=== PATIENT | male | born 1960 | race Caucasian/White ===

== ENCOUNTER → 2018-02-12 09:51 | Outpatient (CLI) | payer OTHER, SELFPAY ==
[2018-02-12 10:35] VITALS: PULSE 66
== END ==
PROVIDERS: Family Provider Family Medicine; PCP Family Medicine; Visit Provider Family Medicine
DX: R06.02 Shortness of breath (principal)
CPT/HCPCS: 94060; 94640

== ENCOUNTER → 2018-07-13 08:46 | Outpatient (CLI) | payer OTHER, SELFPAY ==
--- NOTE | 2018-07-13 09:02 | XR_ITS ---
XR finger RT min 2V CLINICAL INDICATION: Pain and numbness ITS.REASON: RT THUMB NUMBNESS ORDERING PHYSICIAN: Pete Rivera MD PATIENT AGE: 58 years Comparison: None FINDINGS: There is cortical irregularity involving the distal aspect of the first metacarpal with some osteophyte formation also at this region. The joint space is well-preserved. Minimal spurring is present at the proximal aspect of the proximal phalanx of the foam. There are mild osteoarthritic changes of the interphalangeal joint of the thumb. IMPRESSION: Cortical irregularity at the distal aspect of the first metacarpal which may be related to old fracture. Avascular necrosis with cortical collapse is also a consideration in the appropriate clinical setting. Mild osteoarthritis of the interphalangeal joint
== END ==
PROVIDERS: PCP Family Medicine; Visit Provider Family Medicine
DX: R20.0 Anesthesia of skin (principal)
CPT/HCPCS: 73140

== ENCOUNTER → 2019-09-04 12:54 | Outpatient (CLI) | payer OTHER, SELFPAY ==
[2019-09-04 13:00] LABS: Adenovirus F 40/41, stool Not Detected (NotDetected); Astrovirus Not Detected (NotDetected); Clostridium Difficile A/B, PCR Not Detected (NotDetected); Cryptosporidium Not Detected (NotDetected); Cyclospora Cayetanesis Not Detected (NotDetected); Entamoeba histolytica Not Detected (NotDetected); Enteroaggregative E coli Not Detected (NotDetected); Enteropathogenic E coli Not Detected (NotDetected); Enterotoxigenic E coli Not Detected (NotDetected); Giardia lamblia Not Detected (NotDetected); Norovirus Not Detected (NotDetected); Plesimonas Shigalloides, PCR Not Detected (NotDetected); Rotavirus A Not Detected (NotDetected); Salmonella, PCR Not Detected (NotDetected); Sapovirus Not Detected (NotDetected); Shiga-like toxin E coli Not Detected (NotDetected); Shigella Enterovasive E coli Not Detected (NotDetected); Vibrio Cholerae Not Detected (NotDetected); Vibrio, PCR Not Detected (NotDetected); Yersinia Entercolitica, PCR Not Detected (NotDetected)
[2019-09-04 15:47] LABS: Campylobacter Detected (NotDetected)
== END ==
PROVIDERS: Visit Provider Nurse Practitioner Family
DX: R19.7 Diarrhea, unspecified (principal); A04.5 Campylobacter enteritis
CPT/HCPCS: 87507

== ENCOUNTER → 2020-10-16 06:21 | Outpatient (CLI) | payer OTHER, SELFPAY ==
--- NOTE | 2020-10-16 06:51 | CT_ITS ---
PROCEDURE: CT LUNG SCREENING CLINICAL INDICATION: CURRENT SMOKER 30 pack year smoking history COMPARISON: No exams were available for comparison TECHNIQUE: The exam was performed on a GE Light Speed [address] scanner using 2.90 mGy CTDI. A low dose helical CT CHEST was performed on a multi-detector scanner. All CT scans at the facility use one or more dose reduction, viz: automated exposure control, ma/kV adjustment per patient size (including targeted exams where dose is matched to indication, i.e. head), or iterative reconstruction technique. The LDCT was performed in a facility that meets the criteria for the screening program. Data regarding this exam was submitted to ACR which is an approved registry. The order for this exam indicates that it came as a result of a lung cancer screening counseling shard decision-making visit that included all the elements required of such a visit including smoking cessation. The radiologist interpreting this exam meets the CMS criteria for the LDCT lung cancer screening program. The exam is reported using the Lung-RADS classification scale and reported to the ACR registry. NOTE: This study was performed for the specific purposes of lung cancer screening and is not an alternative to diagnostic chest CT. RADIATION DOSE: CTDI vol(CT dose Index-volume) = 2.90mG DLP (Dose Length Product) = 112.55 mGcm FINDINGS: There are few scattered small parenchymal and subpleural opacities. The largest areas approximately 1.4 x 0.9 cm in the right lung base posterior medially. These may be post inflammatory/infectious. Six-month follow-up suggested to confirm stability. Mild COPD changes. OTHER FINDINGS: Coronary artery calcifications are present. Aortic valve calcifications also noted. There is bilateral adrenal enlargement consistent with adenomatous involvement. IMPRESSION: Lung-RADS Category 3 Probably Benign Follow-up: [address] Chest without and with contrast. Dictated by: Virgilio Falcon MD 10/23/2020 13:12 Virgilio Falcon MD in [place] 10/23/2020 13:12
== END ==
PROVIDERS: PCP Family Medicine; Visit Provider Family Medicine
DX: Z87.891 Personal history of nicotine dependence (principal); Z12.2 Encounter for screening for malignant neoplasm of respiratory organs
CPT/HCPCS: 71271

== ENCOUNTER → 2020-11-28 11:42 | Outpatient (CLI) | payer OTHER, SELFPAY ==
--- NOTE | 2020-11-28 11:46 | XR_ITS ---
PROCEDURE: XR LUMBAR SPINE MIN 4V CLINICAL INDICATION: MID BACK PAIN COMPARISON: CR LS5 LUMB SPINE 5 VIEWS from 09/24/2012 FINDINGS: Normal alignment. No acute fracture or dislocation. Multilevel degenerative disc disease is present from L1-L4 and L5-S1 most progressed at L5-S1. Small anterior osteophytes are present at every lumbar level. Facet arthritic changes are noted at L5-S1. there are mild degenerative changes of the SI joints. Calcification noted involving the abdominal aorta with suggestion of mild aneurysmal dilatation of approximately [address] may confirm. Other findings:None. IMPRESSION: 1. Multilevel lumbar spondylosis which has shown some progression especially at L5-S1 compared to 09/24/2012. 2. Possible small abdominal aortic aneurysm. CT may confirm. Dictated by: Virgilio Falcon MD 11/28/2020 12:20 Virgilio Falcon MD in [facility] 11/28/2020 12:20
== END ==
PROVIDERS: PCP Family Medicine; Visit Provider Family Medicine
DX: M54.9 Dorsalgia, unspecified (principal)
CPT/HCPCS: 72110

== ENCOUNTER → 2021-03-08 09:48 | Outpatient (CLI) | payer OTHER, SELFPAY ==
--- NOTE | 2021-03-08 09:53 | MR_ITS ---
PROCEDURE INFORMATION: Exam: MR Lumbar Spine Without Contrast Exam date and time: 03/08/2021 9:53 AM Age: 61 years old Clinical indication: Low back pain; Additional info: Low back pain. Intermittent lbp. Lt leg pain, numbness and tingling. No injury or trauma. Prior x-ray 11-28-20 TECHNIQUE: Imaging protocol: Multiplanar magnetic resonance images of the lumbar spine without intravenous contrast. COMPARISON: CR XR LUMBAR SPINE MIN 4V 11/28/2020 11:50 AM FINDINGS: alignment is grossly normal. signal intensity within the bone marrow is normal. conus terminates at the mid aspect of L1. Soft tissues are unremarkable. Diffuse degenerative disc disease throughout the lumbar spine Large anterior osteophytes L5-S1 Severe neural foraminal narrowing L5-S1 No marrow edema Neural foraminal narrowing multiple levels most pronounced L3-L4, L4-L5 and L5-S1 Renal cyst bilaterally T11-T12: Central canal and neural foramina are widely patent. T12-L1: Central canal and neural foramina are widely patent. L1-L2: Mild narrowing of the central canal secondary to facet hypertrophic changes, ligamentum flavum hypertrophic changes, and a broad-based annular bulge. L2-L3: Broad-based annular disc bulge effaces the anterior aspect of the thecal sac mildly so. Disc lateralizes to the right and left.Central canal and neural foramina are widely patent.Moderate facet hypertrophic changes and ligamentum flavum hypertrophic changes. L3-L4: Broad-based annular disc bulge lateralizing to the right greater than left. Narrowing of the neural foramina right greater than left.Moderate facet hypertrophic changes and ligamentum flavum hypertrophic changes. L4-L5: Broad-based annular disc bulge effaces the anterior aspect of the thecal sac mildly so. Central canal and neural foramina are widely patent. L5-S1: Broad-based annular disc bulge with a broad-based central disc protrusion. Disc lateralizes to the right and left with narrowing of both neural foramina. IMPRESSION: Multilevel degenerative disc disease as described above.
== END ==
PROVIDERS: PCP Family Medicine; Visit Provider Neurological Surgery
DX: M54.50 Low back pain, unspecified (principal)
CPT/HCPCS: 72148; 76376

== ENCOUNTER → 2021-05-07 11:16 | Outpatient (CLI) | payer OTHER, SELFPAY ==
[2021-05-07 12:41] LABS: Blood Urea Nitrogen 16 mg/dl (9-20); Estimated Glomerular Filt Rate 85 ml/min (>60); GFR (African American) 103 ML/MIN (>60)
== END ==
PROVIDERS: Visit Provider Family Medicine
DX: R91.8 Other nonspecific abnormal finding of lung field (principal)
CPT/HCPCS: 36415; 82565; 84520

== ENCOUNTER → 2021-05-09 10:43 | Outpatient (CLI) | payer OTHER, SELFPAY ==
--- NOTE | 2021-05-09 10:50 | CT_ITS ---
PROCEDURE: CT CHEST WO/W CON CLINCAL INDICATION: F/U LUNG NODULES COMPARISON: CT CT LUNG SCREENING from 10/16/2020 TECHNIQUE: IV Contrast: 75ml Isovue 370 Axial images obtained with sagittal and coronal reformats. All CT scans at the facility use one or more dose reduction, viz: automated exposure control, ma/kV adjustment per patient size (including targeted exams where dose is matched to indication, i.e. head), or iterative reconstruction technique. FINDINGS: HEART AND MEDIASTINAL STRUCTURES: Coronary artery calcifications. No mediastinal or hilar mass or adenopathy. LUNGS AND PLEURAL SPACES: COPD changes with scattered areas of scarring. Subpleural nodules present in the right upper lobe anteriorly at 5 mm unchanged. There is a small area of subpleural thickening in the right lower lobe posterior medially unchanged. There is mild bronchial thickening. No new nodules evident. BONY STRUCTURES: No acute bony abnormalities apparent. UPPER ABDOMEN: 2.6 cm left renal cyst. There are few small left-sided para-aortic lymph nodes. The right adrenal gland is enlarged consistent with adenomatous involvement. ADDITIONAL FINDINGS: No other significant abnormalities. IMPRESSION: Stable CT appearance of the chest. No change in the subpleural thickening in the right lower lobe posterior medially. Suggest continue LDCT screening in September of 2021 Dictated by: Virgilio Falcon MD 05/10/2021 13:39 Virgilio Falcon MD in [place] 05/10/2021 13:39
== END ==
PROVIDERS: PCP Family Medicine; Visit Provider Family Medicine
DX: R91.8 Other nonspecific abnormal finding of lung field (principal); Z09 Encounter for follow-up examination after completed treatment for conditions other than malignant neoplasm
CPT/HCPCS: 71270; Q9967

== ENCOUNTER 2021-06-08 10:31 | Outpatient (RCR) | payer OTHER, SELFPAY | END 2021-06-08 10:35 | disposition home or self-care (01) | LOC: PT 10:31 | PROVIDERS: PCP Family Medicine; Visit Provider Anesthesiology | DX: M54.16 Radiculopathy, lumbar region (principal) | CPT/HCPCS: 97163 ==

== ENCOUNTER 2021-06-13 10:42 | Emergency (ER) | payer OTHER, SELFPAY ==
[2021-06-13 10:44] VITALS: BP 149/98; PULSE 97; RESP 16; TEMP 36.9; O2SAT 98; BMI 33.5
--- NOTE | 2021-06-13 11:01 | CT_ITS ---
FINAL REPORT CLINICAL HISTORY: HEADACHE, weakness FINDINGS: Axial images of the head were obtained without contrast. Coronal reformatted images were also obtained. This study was performed with techniques to keep radiation doses as low as reasonably achievable (ALARA). Individualized dose reduction techniques using automated exposure control or adjustment of mA and/or kV according to the patient's size were employed. There is generalized age-appropriate atrophy. Periventricular low-attenuation areas are seen consistent with mild chronic ischemic changes. There is no evidence of intracranial hemorrhage or mass. There is no evidence of acute infarct. There is no evidence of shift of the midline structures. No skull abnormality is seen on the bone window images. There is mucosal thickening of multiple ethmoid air cells. IMPRESSION: Atrophy and mild periventricular chronic ischemic changes. No acute intracranial abnormality identified. Reviewed, Interpreted and Dictated by Darryn Murry III, MD Transcribed by Haritha Zambrano Authenticated by Darryn Murry III, MD on 06/13/2021 12:50:25 PM [facility]
--- NOTE | 2021-06-13 11:02 | XR_ITS ---
FINAL REPORT CLINICAL HISTORY: WEAKNESS FINDINGS: SINGLE VIEW CHEST The heart is normal in size. The mediastinum is unremarkable. The lungs are clear. There is no pneumothorax. IMPRESSION: No acute cardiopulmonary process. Reviewed, Interpreted and Dictated by Darryn Murry III, MD Transcribed by Haritha Zambrano Authenticated by Darryn Murry III, MD on 06/13/2021 12:50:[address] [facility]
--- NOTE | 2021-06-13 11:19 | HMH.EDGENADL ---
ED Disposition Clinical Impression: COVID-19 virus infection, Dizziness, Atypical chest pain Headache Qualifiers: Headache type: unspecified Headache chronicity pattern: acute headache Intractability: not intractable Qualified Code(s): R51.9 - Headache, unspecified Disposition: Home, Self-Care Condition on Discharge: Good Instructions: DI for COVID-19 (Suspected or Confirmed ), DI for Headache, DI for Atypical Chest Pain Additional Instructions: See Dr. Rivera in his office on Friday. Rest, drink plenty of fluids. Tylenol or Ibuprofen for fever and/or aches and pains. Monitor your symptoms. IF YOU HAVE AN EMERGENCY WARNING SIGN (INCLUDING TROUBLE BREATHING), SEEK EMERGENCY MEDICAL CARE IMMEDIATELY. COVID-19 Isolation: People with COVID-19 should isolate for 5 days. Then if they are asymptomatic (no symptoms) or their symptoms are resolving (without fever for 24 hours), follow that by 5 days of wearing a mask when around others to minimize the risk of infecting people you encounter. If you test positive for COVID-19 and never develop symptoms, day 0 is the day of your positive viral test (based on the date you were tested) and day 1 is the first full day after your positive test. If you develop symptoms after testing positive, your 5-day isolation period must start over. Day 0 is your first day of symptoms. Day 1 is the first full day after your symptoms developed. What to do: Stay in a separate room from other household members, if possible. Use a separate bathroom, if possible. Avoid contact with other members of the household and pets. Don?t share personal household items, like cups, towels, and utensils. Wear a mask when around other people if able. Additional instructions for HEADACHE: See your physician as soon as possible for further evaluation. Return immediately if worsening headache, vomiting, problems with vision or speech, fever, numbness or weakness of the extremities, neck pain or stiffness. Additional instructions for CHEST PAIN: See your physician as soon as possible for further evaluation. Return immediately if worsening chest pain, vomiting, shortness of breath, fever, coughing of blood. Referrals: Pete Rivera MD [Primary Care Provider] - - Critical Care Critical Care Time: No Attestation: On 06/13/21, the high probability of a clinically significant, sudden or life threatening deterioration of the following system(s) required my full and direct attention, intervention and personal management. The time I documented below is in addition to time spent performing reported procedures but includes the following listed in this critical care notation. Medical Decision Making - Scott Inquiry Pt receiving controlled substance: No Vital Signs: 06/13/21 10:44 06/13/21 11:30 06/13/21 12:00 Temperature 98.5 F Temperature Source Oral Pulse Rate 88 83 Pulse Rate [Radial] 97 H Respiratory Rate 16 16 16 Blood Pressure 129/80 154/84 H Blood Pressure [Right Arm] 149/98 H Blood Pressure Mean [Right Arm] 115 Blood Pressure Position Sitting Sitting Blood Pressure Position [Right Arm] Sitting 02 Sat by Pulse Oximetry 98 96 96 Oxygen Delivery Method Room Air Room Air Room Air 06/13/21 12:30 Temperature Temperature Source Pulse Rate 76 Pulse Rate [Radial] Respiratory Rate 16 Blood Pressure 135/68 Blood Pressure [Right Arm] Blood Pressure Mean [Right Arm] Blood Pressure Position Sitting Blood Pressure Position [Right Arm] 02 Sat by Pulse Oximetry 93 L Oxygen Delivery Method Room Air - Lab Data Lab Results 06/13/21 11:02: SARS-CoV-2 (PCR) Detected A, Influenza A Untype (PCR) Not detected, Influenza Type B (PCR) Not detected 06/13/21 11:05: WBC 6.6, RBC 4.77, Hgb 15.7, Hct 50.1, MCV 105.0 H, MCH 32.8 H, MCHC 31.3 L, RDW 14.1, Plt Count 211, MPV 8.8, Neut % (Auto) 69.0, Lymph % (Auto) 12.0, [place] % (Auto) 17.1 H, Eos % (Auto) 0.7, Baso % (Auto) 1.2, Neut #
[2021-06-13 11:30] VITALS: BP 129/80; PULSE 88; RESP 16; O2SAT 96
--- NOTE | 2021-06-13 11:32 | ECG_ITS ---
APPROVED REPORT Exam: Resting ECG HR:85 bpm ECG Measurements Heart Rate 85 AXES DC 196 P -11 QRSd 154 QRS 268 QT 394 T 9 QTc 468 Conclusion Normal sinus rhythm Right bundle branch block Abnormal ECG Electronically signed by : Pete Brewer MD 06/14/2021 13:44:10
[2021-06-13 11:33] LABS: Chloride 101 mmol/L (98-107); Potassium 3.9 mmoL/L (3.5-5.1); Sodium 136 mmol/L (136-145)
[2021-06-13 11:36] LABS: Alanine Aminotransferase 28 U/L (12-78); Albumin Level 4.3 g/dl (3.5-5.0); Albumin/Globulin Ratio 1.5 (1.1-1.8); Alkaline Phosphatase 67 U/L (38-126); Anion Gap 11.9 mEq/L (5-15); Aspartate Amino Transferase 35 U/L (17-59); Bilirubin,Total 0.3 mg/dl (0.2-1.3); Carbon Dioxide 27 mmol/L (22.0-30.0); Globulin 2.8 g/dL (1.3-3.2); Total Protein,Serum 7.1 g/dl (6.3-8.2)
[2021-06-13 11:37] LABS: Calcium 8.9 mg/dl (8.4-10.2); Glucose 119 mg/dl (74-100)
[2021-06-13 11:44] LABS: Influenza A, PCR Not Detected (NotDetected); Influenza B, PCR Not Detected (NotDetected)
[2021-06-13 11:55] LABS: Basophils # 0.1 K/mm3 (0-0.2); Basophils % 1.2 % (0.1-2.0); Eosinophils % 0.7 % (0.1-12.0); Hematocrit 50.1 % (42.0-52.0); Hemoglobin 15.7 g/dL (14.1-18.0); Lymphocytes # 0.8 K/mm3 (0.7-4.5); Mean Corpuscular HGB Conc 31.3 g/dL (31.8-35.4); Mean Corpuscular Hemoglobin 32.8 pg (27.0-31.2); Mean Platelet Volume 8.8 fl (7.4-10.4); Monocytes # 1.1 K/mm3 (0.1-1.0); Monocytes % 17.1 % (1.7-9.3); Neutrophils # 4.6 K/mm3 (1.8-7.8); Platelet Count 211 K/mm3 (142-424); Red Blood Count 4.77 M/mm3 (4.60-6.20); Red Cell Distribution Width 14.1 % (11.5-17.5); White Blood Count 6.6 K/mm3 (4.8-10.8)
[2021-06-13 11:56] LABS: Troponin I < 0.01 ng/ml (0.00-0.034)
[2021-06-13 12:00] VITALS: BP 154/84; PULSE 83; RESP 16; O2SAT 96
[2021-06-13 12:13] LABS: Blood Urea Nitrogen 17 mg/dl (9-20); Creatinine Clearance Estimated 116 mL/min (50-200); Estimated Glomerular Filt Rate 98 ml/min (>60); GFR (African American) 118 ML/MIN (>60)
[2021-06-13 12:30] VITALS: BP 135/68; PULSE 76; RESP 16; O2SAT 93
[2021-06-13 12:44] LABS: Coronavirus 19, PCR Detected (NotDetected)
[2021-06-13 14:11] VITALS: BP 140/72; PULSE 72; RESP 16; TEMP 36.9; O2SAT 94
== END 2021-06-13 14:13 | disposition home or self-care (01) ==
PROVIDERS: Emergency Provider Emergency Medicine; PCP Family Medicine
DX: U07.1 COVID-19 (principal); I10 Essential (primary) hypertension; F17.210 Nicotine dependence, cigarettes, uncomplicated
CPT/HCPCS: 70450; 71045; 80053; 84484; 85025; 93005; 99283; C9803; U0003; U0005

== ENCOUNTER 2021-08-22 11:00 | Outpatient (RCR) | payer OTHER, SELFPAY | END 2021-08-22 11:05 | disposition home or self-care (01) | LOC: PT 11:00 | PROVIDERS: PCP Family Medicine; Visit Provider Anesthesiology | DX: M54.16 Radiculopathy, lumbar region (principal) | CPT/HCPCS: 97010; 97012; 97014; 97110; 97163; G0283 ==

== ENCOUNTER 2022-10-27 07:14 | Emergency (ER) | payer OTHER, SELFPAY ==
[2022-10-27 07:14] VITALS: BP 153/83; PULSE 76; RESP 16; TEMP 36.5; O2SAT 98; BMI 31.5
--- NOTE | 2022-10-27 07:47 | HMH.EDGENADL ---
Discharge Plan Disposition Patient Disposition: Home, Self-Care Prescriptions Prescriptions: New prednisone [prednisone] 20 mg tablet 20 mg PO BID Qty: 10 0RF ketorolac 10 mg tablet 10 mg PO Q8H PRN (Reason: pain) 2 Days Qty: 10 0RF cyclobenzaprine 10 mg tablet 10 mg PO BID PRN (Reason: muscle spasm) Qty: 14 0RF No Action amlodipine-atorvastatin 1 EACH tablet 1 ea PO DAILY omeprazole 40 MG capsule,delayed release(DR/EC) 40 mg PO DAILY Label Comments: TAKE 1 CAPSULE BY MOUTH ONCE DAILY Referrals Follow up/Referrals: Aliya Haile APRN [Primary Care Provider] - See instructions Clinical Impressions Clinical Impression: Cervical radicular pain Instructions Patient Instructions: DI for Cervical Radiculopathy Discharge ED Provider: Carole (ED)[facility] General Adult HPI General Chief complaint: PAIN Stated complaint: RT shoulder pain Time Seen by Provider: 10/27/22 07:40 Mode of Arrival: Ambulatory Source of Information: Patient and Medical Record Limitations: No Limitations Description of Symptoms (Recalled from ER Triage Doc. by RN): 62 yo M presents to ED with c/o right shoulder pain that began friday. pain is sharp and radiates down arm and up into neck. pt is tender to palpation in area, visible swelling locally at shoulder. pt did see pcp for issue and was referred to PT. pt went to therapy on friday and pt reports no relief. History of Present Illness HPI narrative: neck pain x 1 month with rad to rt upper ext and no fever or trauma - has seen pcp and seen by therapy Onset (ago): week(s) Location: neck Radiation: extremity Severity: moderate Associated symptoms: denies other symptoms Related Data Home Medications Medication Instructions Recorded Confirmed amlodipine 10 mg-atorvastatin 40 1 ea PO DAILY blood pressure 08/14/18 10/27/22 mg tablet omeprazole 40 mg capsule,delayed 40 mg PO DAILY GERD 06/25/19 10/27/22 release Previous Rx's Medication Instructions Recorded cyclobenzaprine 10 mg tablet 10 mg PO BID PRN muscle spasm #14 10/27/22 tabs ketorolac 10 mg tablet 10 mg PO Q8H PRN pain 2 days #10 10/27/22 tabs prednisone 20 mg tablet 20 mg PO BID #10 tabs 10/27/22 Allergies Allergy/AdvReac Type Severity Reaction Status Date / Time No Known Allergies Allergy Verified 08/14/18 11:12 [facility] Disclaimer: The information contained in this section may have been updated after the patient was seen, as this information can be updated by other users. Social History Smoking Status: Current every day smoker tobacco type: cigarettes packs per day: 1 alcohol intake: never current occupational status: other Travel in the last 8 weeks: None household members: spouse caffeine: Yes ROS Obtained: Yes All systems reviewed & no additional complaints except as documented Physical Exam General General appearance: alert Head Head exam: normocephalic Eye Eye exam: Present PERRL and EOMI ENT ENT exam: Present mucous membranes moist Neck Neck exam: Present trachea midline and tenderness; Absent full ROM Respiratory Respiratory exam: Absent respiratory distress Cardiovascular Cardiovascular exam: Present regular rate Extremities Exam Extremities exam: Absent joint swelling Neurological Exam Neurological exam: Present alert and CN II-XII intact; Absent motor sensory deficit Psychiatric Psychiatric exam: Present normal affect Skin Skin exam: Absent rash Medical Decision Making Medical Records Medical records reviewed: Yes I reviewed the patient's medical records. Scott Inquiry Pt receiving controlled substance: No Vital Signs: 10/27/22 07:14 Temperature 97.7 F Temperature Source Oral Pulse Rate [Left] 76 Respiratory Rate 16 Blood Pressure [Right Arm] 153/83 H Blood Pressure Mean [Right Arm] 106 02 Sat by Pulse Oximetry 98 Lab Data Lab results reviewed: Yes I reviewed the patient's lab results. Order
[2022-10-27 08:02] VITALS: BP 143/96; PULSE 84; RESP 20; TEMP 36.8; O2SAT 97
== END 2022-10-27 08:03 | disposition home or self-care (01) ==
PROVIDERS: Emergency Provider Emergency Medicine; PCP Nurse Practitioner Family
DX: M54.12 Radiculopathy, cervical region (principal); M25.511 Pain in right shoulder; F17.210 Nicotine dependence, cigarettes, uncomplicated
CPT/HCPCS: 96372; 99283; 99284

== ENCOUNTER 2022-11-07 10:00 | Outpatient (RCR) | payer OTHER, SELFPAY | END 2022-11-07 10:05 | disposition home or self-care (01) | LOC: OT 10:00 | PROVIDERS: Visit Provider Internal Medicine | DX: M25.511 Pain in right shoulder (principal) | CPT/HCPCS: 97010; 97014; 97110; 97140; 97165; G0283 ==

== ENCOUNTER → 2022-11-07 11:11 | Outpatient (CLI) | payer OTHER, SELFPAY ==
--- NOTE | 2022-11-07 11:15 | XR_ITS ---
FINAL REPORT CLINICAL HISTORY: rt shoulder pain FINDINGS: Two views show no evidence of an acute, displaced fracture or dislocation of the visualized bony architecture. Moderate degenerative joint disease is present involving the glenohumeral and acromioclavicular joints. Multiple old rib fractures are present on the right side. IMPRESSION: Degenerative changes. No acute bony abnormality. Reviewed, Interpreted and Dictated by Kvng Barraza MD Transcribed by Merline Mcnamara Authenticated and [facility]
== END ==
PROVIDERS: PCP Family Medicine; Visit Provider Orthopaedic Surgery
DX: M25.511 Pain in right shoulder (principal)
CPT/HCPCS: 73030

== ENCOUNTER 2023-04-04 20:45 | Emergency (ER) | payer OTHER, SELFPAY ==
[2023-04-04 20:46] VITALS: BP 140/88; PULSE 87; RESP 16; TEMP 36.7; O2SAT 98; BMI 29.8
--- OUTSIDE RECORDS SUMMARY | 2023-04-04 20:55 | XMS_ITS | Clinical Summary ---
Author Name Unknown Address [address] [place] [address] Phone Organization [facility] , [facility] Address [address] [place] [address] Phone Care Team Providers Care Automatic Washer Mechanic Name Role Phone Kassy IZQUIERDO, Diaz Chase Unavailable [phone] KATIE IZQUIERDO, YAS Primary Care Provider [phone] Reason for Visit and Chief Complaint [Patient Encounter] Problems Includes: Problems addressed during this encounter and other active Problems All Visits Onset Date Resolved Date Provider Condition S tatus Joint Pain, Localized in the Right Shoulder 12/30/2022 Teodoro lew MD Active Plan of Treatment No Plan of Treatment Recorded Assessments Includes: Assessments from this encounter No Assessments Recorded Medical Equipment - Implanted Devices Includes: Current Devices No Medical Equipment Recorded Medications Includes: Medications discussed during this encounter and other current Medications Current Medications (continue as prescribed) Meloxicam 15 MG Oral Tablet 12/30/2022 Provider: Diagnosis: [facility] Omeprazole-Sod Bicarbonate 20-1100 MG Oral Capsule 12/30/2022 Provider: Diagnosis: amLODIPine-Atorvastatin 2.5-10 MG Oral Tablet 12/31/19 Provider: Diagnosis:
--- OUTSIDE RECORDS SUMMARY | 2023-04-04 20:55 | XMS_ITS | Clinical Summary ---
Author Name Unknown Address [address] [place] [address] Phone Organization [facility] , [facility] Address [address] [place] [address] Phone Care Team Providers Care Assistant Foreman Name Role Phone Kassy IZQUIERDO, Diaz Chase Unavailable [phone] YAS WILSON MD Primary Care Provider [phone] Reason for Visit and Chief Complaint The Chief Complaint is: right shoulder pain Problems Includes: Problems addressed during this encounter and other active Problems Current Visit Onset Date Resolved Date Provider Conditio n Status Joint Pain, Localized in the Right Shoulder 12/30/2022 Teodoro lew MD Active Past Visits Onset Date Resolved Date Provider Condition Status Joint Pain in the Right Knee 10/23/2016 Diaz Elena MD Active Plan of Treatment 62 year old male presents in the office for a second opinion on his right shoulder. He has provided outside images. He states that he has seen two different physicians prior to being here. He has had an MRI and is here to go over the results. I have reviewed the MR images in the office with him today. 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 I have discussed treatment options with him in the office with him today. I indicate him for a right reverse total shoulder arthroplasty. I have discussed risks and benefits of the procedure. Consent was given to proceed. The patient understands the risk of surgery to include but are not limited to infection, possible nerve damage, tendon or vessel injury, scar sensitivity and anesthesia.The patient understands the need for postoperative rehabilitation and therapy. The patient had no further questions regarding the surgery or potential risks. This patient has
--- OUTSIDE RECORDS SUMMARY | 2023-04-04 20:55 | XMS_ITS ---
Care Plan - [facility] Created on: April 04, 2023 Fan Avendaño : 1960 Sex: Male Author Name Unknown Address [address] [place] [address] Phone Organization [facility] Address [address] [place] [address] Phone Care Team Providers Care Cordwood Cutter Helper Name Role Phone Kassy IZQUIERDO, Diaz Smith [phone] KATIE IZQUIERDO, YAS Primary Care Provider [phone]
--- OUTSIDE RECORDS SUMMARY | 2023-04-04 20:55 | XMS_ITS | Clinical Summary ---
Author Name Unknown Address [address] [place] [address] Phone Organization [facility] , [facility] Address [address] [place] [address] Phone Care Team Providers Care Violin Teacher Name Role Phone Kassy IZQUIERDO, Diaz WILSON MD, YAS Primary Care Provider [phone] Reason for Visit and Chief Complaint The Chief Complaint is: right shoulder pain Problems Includes: Problems addressed during this encounter and other active Problems All Visits Onset Date Resolved Date Provider Condition S tatus Joint Pain, Localized in the Right Shoulder 12/30/2022 Teodoro lew MD Active Plan of Treatment Fall Risk Assessment: This patient has been identified as a fall risk. Balance/gait along with postural blood pressure, vision and home fall hazards have been assessed. Medications have been reviewed, and recommendations made with regard to contributing factors for future falls. Plan of care: Consideration of vitamin D supplementation along with balance and strength training with consideration for formal physical therapy has been discussed with the patient. - Last Documented On 03/08/2023 7:36AM ; [facility] This is an short and early clear case. 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 The interpretation from Dr. Ramirze was absolutely incorrect. This patient has passive forward elevation of about 130 and a positive drop arm test with shoulder shrug elevation which would essentially be scapular rotation without glenohumeral motion so roughly 40 to 60 degrees of elevation. It is obvious that his coronal force couple is out of balance and therefore reverse arthroplasty would be his really his only option for consistent improved function. Quite frankly, I believe this is a diversion tactic plate by the [facility]
--- OUTSIDE RECORDS SUMMARY | 2023-04-04 20:56 | XMS_ITS | Clinical Summary ---
Author Name Unknown Address [address] [place] [place] [address] Phone Organization [facility] Address [address] [place] [address] Phone Care Team Providers Care Vegetable Grower Name Role Phone Kassy IZQUIERDO, Diaz Chase Unavailable [phone] KATIE IZQUIERDO, YAS Primary Care Provider [phone] Reason for Visit and Chief Complaint The Chief Complaint is: Right knee pain Problems Includes: Problems addressed during this encounter and other active Problems All Visits Onset Date Resolved Date Provider Condition S tatus Joint Pain, Localized in the Right Shoulder 12/30/2022 Teodoro lew MD Active Plan of Treatment Instructions to patient Instructions for patient see pcp for wt/ bp Last Documented On 0 1:33PM ; [facility], [facility] Intervention and counseling on cessation of tobacco use Last Documented On 0 1:33PM ; [facility], [facility] Education and Decision Aids were provided during visit for: Health seminar on smoking ce ssation Last Documented On 0 1:33PM ; [facility], [facility] Assessments Includes: Assessments from this encounter Findings Fan is here today complaining of right knee pain. Had a knee arthroscopy in October 2016 resulting in a partial meniscectomy. At that time he resented with her to s
--- OUTSIDE RECORDS SUMMARY | 2023-04-04 20:56 | XMS_ITS | Clinical Summary ---
Author Name Unknown Address [address] [place] [address] Phone Organization [facility] Address [address] [place] [address] Phone Care Team Providers Care Tile Erector Name Role Phone Kassy IZQUIERDO, Diaz Chase Unavailable [phone] KATIE IZQUIERDO, YAS Primary Care Provider [phone] Reason for Visit and Chief Complaint The Chief Complaint is: Right knee pain Problems Includes: Problems addressed during this encounter and other active Problems All Visits Onset Date Resolved Date Provider Condition S tatus Joint Pain, Localized in the Right Shoulder 12/30/2022 Teodoro lew MD Active Plan of Treatment Instructions to patient Instructions for patient see pcp for bp Last Documented On 0 8:33AM ; [facility] Intervention and counseling on cessation of tobacco use Last Documented On 0 8:33AM ; [facility], [facility] Education and Decision Aids were provided during visit for: Health seminar on smoking ce ssation Last Documented On 0 8:23AM ; [facility], [facility] Assessments Includes: Assessments from this encounter Findings Fan is here for follow-up of degenerative joint disease of the right knee. He had a cortisone injection and proximally one month ago and is doing extremely well. He
--- NOTE | 2023-04-04 21:14 | PC.NURSE ---
doctor in room
--- NOTE | 2023-04-04 21:22 | HMH.EDGENADL ---
Discharge Plan Disposition Patient Disposition: Home, Self-Care Prescriptions Prescriptions: New gabapentin 300 mg capsule See Rx Instructions .ROUTE .COMPLEX 7 Days Qty: 18 0RF Rx Instructions: 300 mg orally ; take 1 pill day 1, 1 pill twice a day day 2, 1 pill 3 times a day thereafter for neuropathic pain down your lower extremity. No Action amlodipine-atorvastatin 1 EACH tablet 1 ea PO DAILY omeprazole 40 MG capsule,delayed release(DR/EC) 40 mg PO DAILY Patient Comments: TAKE 1 CAPSULE BY MOUTH ONCE DAILY prednisone [prednisone] 20 mg tablet 20 mg PO BID Qty: 10 0RF ketorolac 10 mg tablet 10 mg PO Q8H PRN (Reason: pain) 2 Days Qty: 10 0RF cyclobenzaprine 10 mg tablet 10 mg PO BID PRN (Reason: muscle spasm) Qty: 14 0RF Referrals Follow up/Referrals: Adan Mason MD [Staff Physician] - See instructions Nina Ge MD [Primary Care Provider] - See instructions Activity Restrictions/Add. Instructions Additional Instructions/Restrictions: At this time it was felt you are safe to be discharged home. If new or worsening symptoms please do not hesitate to return the emergency department. Please follow-up with your family doctor for possible MRI. Please follow-up with Dr. Mason for long-term pain management as soon as you are able. Clinical Impressions Clinical Impression: Back pain, Sciatica Discharge ED Provider: Frederick Fung General Adult HPI General Chief complaint: PAIN Stated complaint: LT hip and LT leg pain Time Seen by Provider: 04/04/23 21:11 Mode of Arrival: Ambulatory Source of Information: Patient Limitations: No Limitations Description of Symptoms (Recalled from ER Triage Doc. by RN): Presents to ED with c/o sharp stabbing back pain that radiates down his LLE. Patient reports he was seenat his PCP Friday for the same complaints and was Rx'd Methylprednisolone and Lidocaine topical gel. Patient states his back pain was better until tonight but was turned wrong and had severe pain. 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 Patient is able to walk on extremity but has severe pain History of Present Illness HPI narrative: Patient is a 63-year-old male with past medical history of back pain who presents emergency department for evaluation of back pain. Patient had an acute worsening prior to arrival when he was walking across the room. Pain is left-sided, sacroiliac radiating down his leg. Pain is severe in intensity. He has been prescribed topical gel, methylprednisolone without success. No trauma. No urinary or bowel incontinence. No other acute complaints at this time. Related Data Home Medications Medication Instructions Recorded Confirmed amlodipine 10 mg-atorvastatin 40 1 ea PO DAILY blood pressure 08/14/18 11/28/22 mg tablet omeprazole 40 mg capsule,delayed 40 mg PO DAILY GERD 06/25/19 11/28/22 release Previous Rx's Medication Instructions Recorded cyclobenzaprine 10 mg tablet 10 mg PO BID PRN muscle spasm #14 10/27/22 tabs ketorolac 10 mg tablet 10 mg PO Q8H PRN pain 2 days #10 10/27/22 tabs prednisone 20 mg tablet 20 mg PO BID #10 tabs 10/27/22 gabapentin 300 mg capsule See Rx Instructions .Route 04/04/23 .COMPLEX 7 days #18 caps Allergies Allergy/AdvReac Type Severity Reaction Status Date / Time No Known Allergies Allergy Verified 11/28/22 15:38 [facility] Disclaimer: The information contained in this section may have been updated after the patient was seen, as this information can be updated by other users. Medical History Rotator cuff arthropathy Social History Smoking Status: Current every day smoker tobacco type: cigarettes packs per day: 1 alcohol intake: never current occupational status: other Travel in the last 8 weeks: None household members: spouse caffeine: Yes ROS Obtained: Yes Systtanner
[2023-04-04 21:23] VITALS: BP 156/85; PULSE 82; O2SAT 96
[2023-04-04 21:30] VITALS: BP 145/95; PULSE 81; O2SAT 96
--- NOTE | 2023-04-04 21:39 | PC.NURSE ---
Rounded on patient; call light within reach
[2023-04-04 22:00] VITALS: BP 170/110; PULSE 70; O2SAT 96
--- NOTE | 2023-04-04 22:25 | PC.NURSE ---
Patient reports very little improvement to pain. Ambulated to restroom at this time. Notified provider.
[2023-04-04 22:43] VITALS: BP 156/85; PULSE 71; RESP 18; TEMP 36.7; O2SAT 96
== END 2023-04-04 22:44 | disposition home or self-care (01) ==
PROVIDERS: Emergency Provider Emergency Medicine; PCP Family Medicine
DX: M54.42 Lumbago with sciatica, left side (principal); F17.210 Nicotine dependence, cigarettes, uncomplicated
CPT/HCPCS: 96372; 99283

== ENCOUNTER 2023-04-29 08:47 | Emergency (ER) | payer OTHER, SELFPAY ==
[2023-04-29 08:53] VITALS: BP 113/67; PULSE 64; RESP 16; TEMP 36.8; O2SAT 94; BMI 30.8
--- NOTE | 2023-04-29 08:54 | HMH.EDGENADL ---
Discharge Plan Disposition Patient Disposition: Home, Self-Care Condition: Good Prescriptions Prescriptions: No Action amlodipine-atorvastatin 1 EACH tablet 1 ea PO DAILY omeprazole 40 MG capsule,delayed release(DR/EC) 40 mg PO DAILY Patient Comments: TAKE 1 CAPSULE BY MOUTH ONCE DAILY prednisone [prednisone] 20 mg tablet 20 mg PO BID Qty: 10 0RF ketorolac 10 mg tablet 10 mg PO Q8H PRN (Reason: pain) 2 Days Qty: 10 0RF cyclobenzaprine 10 mg tablet 10 mg PO BID PRN (Reason: muscle spasm) Qty: 14 0RF gabapentin 300 mg capsule See Rx Instructions .ROUTE .COMPLEX 7 Days Qty: 18 0RF Rx Instructions: 300 mg orally ; take 1 pill day 1, 1 pill twice a day day 2, 1 pill 3 times a day thereafter for neuropathic pain down your lower extremity. Referrals Follow up/Referrals: Makenzie Wells APRN [Primary Care Provider] - See instructions Activity Restrictions/Add. Instructions Additional Instructions/Restrictions: Please return to the emergency department if you experience any new or worsening symptoms. Clinical Impressions Clinical Impression: Visit for wound check Discharge ED Provider: Christopher lAlen General Adult HPI General Chief complaint: PAIN Stated complaint: wound bleeding and wants pain pump removed Time Seen by Provider: 04/29/23 08:54 History of Present Illness HPI narrative: The patient presents with a chief complaint of a pain pump catheter that ran out of use this morning, following a shoulder reversal surgery performed last Friday. The patient and their spouse are unable to remove the catheter at home and are seeking assistance for its removal. The patient reports no new symptoms, fevers, or chills. They experienced bleeding from the surgical site on , which has since stopped. The patient and their spouse had difficulty contacting their doctor or the hospital for guidance during this time. The patient's spouse called the surgeon's office yesterday, and they were informed that there were about 12 hours left for the pain pump. The pump ran out at 1 o'clock this morning. The patient and their spouse are uncomfortable removing the catheter themselves and have come to the emergency department for assistance. Related Data Home Medications Medication Instructions Recorded Confirmed amlodipine 10 mg-atorvastatin 40 1 ea PO DAILY blood pressure 08/14/18 11/28/22 mg tablet omeprazole 40 mg capsule,delayed 40 mg PO DAILY GERD 06/25/19 11/28/22 release Previous Rx's Medication Instructions Recorded cyclobenzaprine 10 mg tablet 10 mg PO BID PRN muscle spasm #14 10/27/22 tabs ketorolac 10 mg tablet 10 mg PO Q8H PRN pain 2 days #10 10/27/22 tabs prednisone 20 mg tablet 20 mg PO BID #10 tabs 10/27/22 gabapentin 300 mg capsule See Rx Instructions .Route 04/04/23 .COMPLEX 7 days #18 caps Allergies Allergy/AdvReac Type Severity Reaction Status Date / Time No Known Allergies Allergy Verified 11/28/22 15:38 [facility] Disclaimer: The information contained in this section may have been updated after the patient was seen, as this information can be updated by other users. Medical History Rotator cuff arthropathy Social History Smoking Status: Current every day smoker tobacco type: cigarettes packs per day: 1 alcohol intake: never current occupational status: other Travel in the last 8 weeks: None household members: spouse caffeine: Yes ROS Obtained: Yes Systems reviewed as appropriate & no additional complaints except as documented As per HPI Physical Exam General General appearance: alert and in no apparent distress Head Head exam: atraumatic and normocephalic Eye Eye exam: Present normal appearance Neck Neck exam: Present normal inspection Chest Chest inspection: Present normal inspe
[2023-04-29 09:36] VITALS: BP 114/68; PULSE 72; RESP 18; TEMP 36.8; O2SAT 95
== END 2023-04-29 09:51 | disposition home or self-care (01) ==
PROVIDERS: Emergency Provider Emergency Medicine; PCP Nurse Practitioner Family
DX: Z45.1 Encounter for adjustment and management of infusion pump (principal); Z98.890 Other specified postprocedural states
CPT/HCPCS: 99281